=== PATIENT | female | born 1945 | race Caucasian/White ===

== ENCOUNTER 2022-05-28 09:32 | Outpatient (CLI) | payer MEDICARE, OTHER, SELFPAY ==
[2022-05-28 10:07] LABS: Albumin* 4.8 g/dL (3.3-5.0); Chloride* 102 mmol/L (96-114)
[2022-05-28 10:08] LABS: Potassium* 4.5 mmol/L (3.6-5.1); Sodium* 139 mmol/L (135-149)
[2022-05-28 10:10] LABS: Aspartate Amino Transferase* 31 U/L (12-35); Bilirubin Total* 0.6 mg/dL (0.1-1.5); Blood Urea Nitrogen* 12 mg/dL (7-30); Carbon Dioxide* 29 mmol/L (20-32); Cholesterol* 188 mg/dL (90-199); Creatinine* 0.6 mg/dL (0.5-1.5); Estimated Glomerular Filt Rate 92 ml/min; Total Protein* 7.6 g/dL (6.0-8.3)
[2022-05-28 10:11] LABS: Alanine Aminotransferase* 10 U/L (4-35); Alkaline Phosphatase* 65 U/L (40-150); Calcium* 10.3 mg/dL (8.4-10.6); Glucose* 102 mg/dL (60-115); HDL Cholesterol* 59 mg/dL (>=50); LDL Cholesterol Calculated 93 mg/dL (<100); Triglycerides* 179 mg/dL (40-149)
== END 2022-05-28 09:33 | disposition home or self-care (01) ==
PROVIDERS: PCP Family Medicine; Visit Provider Family Medicine
DX: Z00.00 Encounter for general adult medical examination without abnormal findings (principal); I10 Essential (primary) hypertension; E78.5 Hyperlipidemia, unspecified
CPT/HCPCS: 80053; 80061

== ENCOUNTER 2023-06-01 07:41 | Outpatient (CLI) | payer MEDICARE, OTHER, SELFPAY | END 2023-06-01 07:42 | disposition home or self-care (01) | LOC: NFLDREF 12:49 | PROVIDERS: PCP Family Medicine; Referring Provider Family Medicine; Visit Provider Family Medicine | DX: I10 Essential (primary) hypertension (principal); M85.80 Other specified disorders of bone density and structure, unspecified site; E78.5 Hyperlipidemia, unspecified | CPT/HCPCS: 80053; 80061; 82306 ==

== ENCOUNTER 2023-06-17 13:18 | Outpatient (REF) | payer OTHER, SELFPAY | END 2023-06-17 13:19 | disposition home or self-care (01) | LOC: NFLDREF 13:18 | PROVIDERS: PCP Family Medicine; Referring Provider Family Medicine; Visit Provider Family Medicine | DX: I10 Essential (primary) hypertension (principal) | CPT/HCPCS: 80048 ==

== ENCOUNTER 2024-03-12 12:31 | Outpatient (CLI) | payer MEDICARE, OTHER, SELFPAY | END 2024-03-12 12:32 | disposition home or self-care (01) | LOC: NFLDREF 03-14 06:28 | PROVIDERS: PCP Family Medicine; Referring Provider Family Medicine; Visit Provider Nurse Practitioner Family | DX: N30.01 Acute cystitis with hematuria (principal) | CPT/HCPCS: 87086; 87186 ==

== ENCOUNTER 2024-06-04 07:49 | Outpatient (CLI) | payer MEDICARE, OTHER, SELFPAY ==
--- OUTSIDE RECORDS SUMMARY | 2024-06-04 08:57 | XMS_ITS | Clinical Summary ---
Author Organization [email or web address] [facility] Address [place], [place] [address] Care Team Providers Care Patrol Lady Name Role Phone Paige Adamson MD Primary Care Provider [phone] Allergies Active Allergy Reactions Criticality Noted Date Comments Sulfa (Sulfonamide Antibiotics) Rash 11/21 Medications Medication Sig Dispensed Refills Start Date End Date Status atenolol (TENORMIN) 25 mg tablet Take 1 tablet by mouth once daily. 0 12/16/2011 Active simvastatin (ZOCOR) 20 mg tablet Take 1 tablet by mouth at bedtime. 0 12/16/2011 Active omeprazole (PRILOSEC) 20 mg capsule Take 1 capsule by mouth once daily before a meal. 0 12/16/2011 Active anastrozole (ARIMIDEX) 1 mg tablet Take 1 tablet by mouth once daily. 0 12/16/2011 Active aspirin enteric coated 81 mg tablet Take 1 tablet by mouth once daily with a meal. 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/16/2011 Lumbar facet arthropathy 12/16/2011 Left S1 radiculopathy 12/16/2011 Social History Tobacco Use Types Packs/Day Years Used Date Smoking Tobacco: Never Alcohol Use Standard Drinks/Week Comments Not Asked 0 (1 standard drink = 0.6 oz pur e alcohol) Sex and Gender Information Value Date Recorded Sex Assigned at Not on file Gender Identity Not on file Sexual Orientation Not on file Obstetrics History Last Filed Vital Signs Vital Sign Reading Time Taken Comments Blood Pressure 161/87 12/16/2011 11:13 AM CDT Pulse 66 12/16/2011 11:13 AM CDT Temperature 36.6 ??C (97.9 ??F) 12/16/2011 11:13 AM C DT Respiratory Rate - - Oxygen Saturation - - Inhaled Oxygen Concentration - - Weight 62.6 kg (138 lb) 12/16/2011 11:13 AM CDT Height - - Body Mass Index - - Plan of Treatment Health Maintenance Due Date Last Done Comments Tdap 02/28/1955 Depression screening for age 12+ 1956 BMI (ht and wt on same day) for age 18+ 02/28/1962 Tetanus booster 1964 Zoster (shingles) series for age 50+ (1 of 2) 02/28/19 94 DEXA/DXA scan for age 65+ 02/28/2009 Pneumococcal series for age 65+ (1 of 1 - PCV) 009 RSV vaccine for adults or pr egnancy (1 - 1-dose 75+ series) 02/28/2019 COVID-19 vaccine series ( - 2023- season) 4 Influenza for age 65+ 04/22/2024 Care Teams Patrol Lady Relationship Specialty Start Date End Date Paige Adamson MD PCP - General Internal Medicine 09/02/11
== END 2024-06-04 07:50 | disposition home or self-care (01) ==
LOC: NFLDREF 08:55
PROVIDERS: PCP Family Medicine; Referring Provider Family Medicine; Visit Provider Family Medicine
DX: Z00.00 Encounter for general adult medical examination without abnormal findings (principal); E78.5 Hyperlipidemia, unspecified; I10 Essential (primary) hypertension; M85.89 Other specified disorders of bone density and structure, multiple sites
CPT/HCPCS: 80053; 80061; 82306

== ENCOUNTER 2024-10-18 11:17 | Outpatient (CLI) | payer MEDICARE, OTHER, SELFPAY | END 2024-10-18 11:18 | disposition home or self-care (01) | PROVIDERS: PCP Family Medicine; Visit Provider Family Medicine | DX: I10 Essential (primary) hypertension (principal); E78.5 Hyperlipidemia, unspecified; G45.9 Transient cerebral ischemic attack, unspecified | CPT/HCPCS: 80053; 80061; 84443 ==

== ENCOUNTER 2024-10-29 12:59 | Outpatient (CLI) | payer MEDICARE, OTHER, SELFPAY | END 2024-10-29 13:00 | disposition home or self-care (01) | LOC: RAD 12:59 | PROVIDERS: PCP Family Medicine; Visit Provider Family Medicine | DX: G45.9 Transient cerebral ischemic attack, unspecified (principal); I67.1 Cerebral aneurysm, nonruptured | CPT/HCPCS: 93306; 96374 ==

== ENCOUNTER 2024-10-31 13:57 | Outpatient (CLI) | payer MEDICARE, OTHER, SELFPAY ==
--- NOTE | 2024-10-31 13:45 | CRLHL7_ITS ---
For Patients: As a result of the Century Cures Act, medical imaging exams and procedure reports are released immediately into your electronic medical record. You may view this report before your referring provider. If you have questions, please contact your health care provider. Indication: Transient cerebral ischemia. Technique: MRI brain: Multiplanar multisequence MR imaging prior to and following intravenous administration of 20 mL Dotarem. MRA head: [id number] imaging. MRA neck: Jaan-qz-vnllmo and postcontrast images following intravenous 20 mL Dotarem. Comparison: None. Findings: MRI brain: Mild diffuse cerebral volume loss. No mass effect or midline shift. Patchy FLAIR hyperintensities in the supratentorial white matter, typical for moderate chronic microvascular ischemic changes. No intracranial hemorrhage or pathologic extra-axial fluid collection. No diffusion restriction to suggest acute infarction. No pathologic intracranial enhancement. The major arterial flow voids of the skull base are preserved. Thinning of the ocular lenses. Paranasal sinuses are well aerated. Trace mastoid fluid bilaterally. MRA head: The internal carotid, middle cerebral, and anterior cerebral arteries are widely patent. The vertebral, basilar, and posterior cerebral arteries are widely patent. 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 MRA neck: The innominate and subclavian arteries are widely patent. The common carotid arteries are widely patent. The internal carotid arteries are widely patent. The left vertebral artery is dominant. The vertebral artery origins are suboptimally assessed. The vertebral arteries are otherwise widely patent. Impression: MRI brain: 1. No acute intracranial abnormality. 2. Moderate chronic microvascular ischemic changes and mild diffuse cerebral volume loss. MRA head/neck: 1. Widely patent intracranial vasculature. 2. 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 Recommend consultation with the neuro interventional radiology service at [facility] for further management. This can be arranged by calling [phone]. 3. The vertebral artery origins are suboptimally assessed. Otherwise, widely patent cervical vasculature. Dictated by Phillip Marie MD @ 11/01/2024 9:00:34 AM (Electronically Signed)
--- NOTE | 2024-10-31 14:30 | CRLHL7_ITS ---
For Patients: As a result of the Century Cures Act, medical imaging exams and procedure reports are released immediately into your electronic medical record. You may view this report before your referring provider. If you have questions, please contact your health care provider. Indication: Transient cerebral ischemia. Technique: MRI brain: Multiplanar multisequence MR imaging prior to and following intravenous administration of 20 mL Dotarem. MRA head: Txno-jd-umuiit imaging. MRA neck: Jbja-zc-lmmhvz and postcontrast images following intravenous 20 mL Dotarem. Comparison: None. Findings: MRI brain: Mild diffuse cerebral volume loss. No mass effect or midline shift. Patchy FLAIR hyperintensities in the supratentorial white matter, typical for moderate chronic microvascular ischemic changes. No intracranial hemorrhage or pathologic extra-axial fluid collection. No diffusion restriction to suggest acute infarction. No pathologic intracranial enhancement. The major arterial flow voids of the skull base are preserved. Thinning of the ocular lenses. Paranasal sinuses are well aerated. Trace mastoid fluid bilaterally. MRA head: The internal carotid, middle cerebral, and anterior cerebral arteries are widely patent. The vertebral, basilar, and posterior cerebral arteries are widely patent. 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 MRA neck: The innominate and subclavian arteries are widely patent. The common carotid arteries are widely patent. The internal carotid arteries are widely patent. The left vertebral artery is dominant. The vertebral artery origins are suboptimally assessed. The vertebral arteries are otherwise widely patent. Impression: MRI brain: 1. No acute intracranial abnormality. 2. Moderate chronic microvascular ischemic changes and mild diffuse cerebral volume loss. MRA head/neck: 1. Widely patent intracranial vasculature. 2. 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 Recommend consultation with the neuro interventional radiology service at [facility] for further management. This can be arranged by calling [phone]. 3. The vertebral artery origins are suboptimally assessed. Otherwise, widely patent cervical vasculature. Dictated by Phillip Marie MD @ 11/01/2024 8:59:44 AM (Electronically Signed)
--- NOTE | 2024-10-31 14:30 | CRLHL7_ITS ---
For Patients: As a result of the Century Cures Act, medical imaging exams and procedure reports are released immediately into your electronic medical record. You may view this report before your referring provider. If you have questions, please contact your health care provider. Indication: Transient cerebral ischemia. Technique: MRI brain: Multiplanar multisequence MR imaging prior to and following intravenous administration of 20 mL Dotarem. MRA head: Itaq-yj-abkmdc imaging. MRA neck: Ytap-hl-pvtxym and postcontrast images following intravenous 20 mL Dotarem. Comparison: None. Findings: MRI brain: Mild diffuse cerebral volume loss. No mass effect or midline shift. Patchy FLAIR hyperintensities in the supratentorial white matter, typical for moderate chronic microvascular ischemic changes. No intracranial hemorrhage or pathologic extra-axial fluid collection. No diffusion restriction to suggest acute infarction. No pathologic intracranial enhancement. The major arterial flow voids of the skull base are preserved. Thinning of the ocular lenses. Paranasal sinuses are well aerated. Trace mastoid fluid bilaterally. MRA head: The internal carotid, middle cerebral, and anterior cerebral arteries are widely patent. The vertebral, basilar, and posterior cerebral arteries are widely patent. 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 MRA neck: The innominate and subclavian arteries are widely patent. The common carotid arteries are widely patent. The internal carotid arteries are widely patent. The left vertebral artery is dominant. The vertebral artery origins are suboptimally assessed. The vertebral arteries are otherwise widely patent. Impression: MRI brain: 1. No acute intracranial abnormality. 2. Moderate chronic microvascular ischemic changes and mild diffuse cerebral volume loss. MRA head/neck: 1. Widely patent intracranial vasculature. 2. 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 Recommend consultation with the neuro interventional radiology service at [facility] for further management. This can be arranged by calling [phone]. 3. The vertebral artery origins are suboptimally assessed. Otherwise, widely patent cervical vasculature. Dictated by Phillip Marie MD @ 11/01/2024 9:00:15 AM (Electronically Signed)
== END 2024-10-31 13:58 | disposition home or self-care (01) ==
LOC: MRI 13:58
PROVIDERS: PCP Family Medicine; Visit Provider Family Medicine
DX: G45.9 Transient cerebral ischemic attack, unspecified (principal); I67.1 Cerebral aneurysm, nonruptured
CPT/HCPCS: 70544; 70549; 70553; A9575

== ENCOUNTER 2024-11-15 10:52 | Outpatient (CLI) | payer MEDICARE, OTHER, SELFPAY ==
--- NOTE | 2024-11-15 11:00 | CRLHL7_ITS ---
For Patients: As a result of the Century Cures Act, medical imaging exams and procedure reports are released immediately into your electronic medical record. You may view this report before your referring provider. If you have questions, please contact your health care provider. CLINICAL HISTORY: Patient with cerebral aneurysm. TECHNIQUE: Standard helical CT image acquisition through the head following the administration of intravenous contrast was performed. 3D and MIP reconstructions were performed at a separate workstation and permanently archived. COMPARISON: MRA head dated 10/31/2024. FINDINGS: There is a 5.5mm right MCA bifurcation aneurysm. No intracranial proximal large vessel occlusion or flow-limiting luminal stenosis. No findings to suggest an arterial-venous shunting lesion. 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 Please note that all CT scans at this facility use dose modulation, iterative reconstruction, and/or weight-based dosing when appropriate to reduce radiation dose to as low as reasonably achievable. Dictated by Cameron Howard MD @ 11/15/2024 1:58:29 PM (Electronically Signed)
== END 2024-11-15 10:53 | disposition home or self-care (01) ==
LOC: CT 10:54
PROVIDERS: PCP Family Medicine; Visit Provider Neurological Surgery
DX: I67.1 Cerebral aneurysm, nonruptured (principal)
CPT/HCPCS: 70496; Q9967

== ENCOUNTER 2024-11-22 08:50 | Outpatient (CLI) | payer MEDICARE, OTHER, SELFPAY | END 2024-11-22 08:51 | disposition home or self-care (01) | LOC: NFLDREF 11-25 08:37 | PROVIDERS: PCP Family Medicine; Referring Provider Family Medicine; Visit Provider Family Medicine | DX: I10 Essential (primary) hypertension (principal) | CPT/HCPCS: 80048 ==

== ENCOUNTER 2025-03-21 10:05 | Outpatient (CLI) | payer MEDICARE, OTHER, SELFPAY | END 2025-03-21 10:06 | disposition home or self-care (01) | PROVIDERS: PCP Family Medicine; Visit Provider Physician Assistant | DX: R31.9 Hematuria, unspecified (principal) | CPT/HCPCS: 87086 ==

== ENCOUNTER 2025-03-22 11:10 | Outpatient (CLI) | payer MEDICARE, OTHER, SELFPAY | END 2025-03-22 11:11 | disposition home or self-care (01) | LOC: NFLDREF 11:13 | PROVIDERS: PCP Family Medicine; Visit Provider Family Medicine | DX: R31.9 Hematuria, unspecified (principal); N39.0 Urinary tract infection, site not specified | CPT/HCPCS: 87086 ==

== ENCOUNTER 2025-04-15 10:35 | Outpatient (CLI) | payer MEDICARE, OTHER, SELFPAY ==
--- NOTE | 2025-04-15 11:00 | CRLHL7_ITS ---
For Patients: As a result of the 21st Century Cures Act, medical imaging exams and procedure reports are released immediately into your electronic medical record. You may view this report before your referring provider. If you have questions, please contact your health care provider. INDICATION: GROSS HEMATURIA, HISTORY BREAST CANCER TECHNIQUE: CT abdomen and pelvis urogram without and with 100 cc Omnipaque 350 IV contrast. Contrast images were obtained in the nephrographic and delayed phases. COMPARISON: None. FINDINGS: KIDNEYS: The unenhanced images demonstrate hyperdense material within the renal collecting systems bilaterally. The kidneys are normal in caliber and demonstrate normal uptake and excretion of IV contrast. Small bilateral renal cysts are present bilaterally measuring up to 7 millimeters. Incidental 3 millimeter angiomyolipoma left kidney. The renal collecting systems and ureters are symmetrical, normal in caliber, and without evidence of mass or filling defect. URINARY BLADDER: The urinary bladder is normal in caliber and without evidence of mass, wall thickening, or inflammation. OTHER: Scarring in both lung bases noted. No pleural effusion. No intrahepatic mass. Gallbladder distended. No biliary obstruction or calcified stones. Normal spleen. Atherosclerotic changes. No adrenal nodule. No pancreatic mass. Circumscribed area within the central uterus measures 3.1 cm. Ovaries normal. Extensive sigmoid diverticulosis. No diverticulitis. No bowel obstruction or free air. No free fluid or abscess. No adenopathy. Grade 1 degenerative spondylolisthesis of L4 on L5. No vertebral body compression fracture. Osteoporosis. Nondisplaced insufficiency fractures of the sacrum noted. Incidental bone island within the right superior acetabulum. IMPRESSION: 1. Hyperdense material within the renal collecting systems bilaterally which could represent stone material in the absence of recent contrast-enhanced exam. 2. Small bilateral simple renal cysts and small incidental left renal angiomyolipoma. 3. Concern for a central endometrial or uterine mass measuring 3.1 cm. Pelvic ultrasound recommended. Please note that all CT scans at this facility use dose modulation, iterative reconstruction, and/or weight-based dosing when appropriate to reduce radiation dose to as low as reasonably achievable. Dictated by Allen Jiang MD @ 04/15/2025 3:40:52 PM (Electronically Signed)
[2025-04-15 11:18] LABS: Creatinine* 0.6 mg/dL (0.5-1.5); Estimated Glomerular Filt Rate 90 ml/min
== END 2025-04-15 10:36 | disposition home or self-care (01) ==
LOC: CT 10:37
PROVIDERS: PCP Family Medicine; Visit Provider Family Medicine
DX: R31.0 Gross hematuria (principal); N28.1 Cyst of kidney, acquired; R19.00 Intra-abdominal and pelvic swelling, mass and lump, unspecified site; Z85.3 Personal history of malignant neoplasm of breast
CPT/HCPCS: 36415; 74178; 82565; Q9967

== ENCOUNTER 2025-04-30 10:35 | Outpatient (CLI) | payer MEDICARE, OTHER, SELFPAY ==
--- NOTE | 2025-04-30 10:45 | CRLHL7_ITS ---
For Patients: As a result of the Century Cures Act, medical imaging exams and procedure reports are released immediately into your electronic medical record. You may view this report before your referring provider. If you have questions, please contact your health care provider. INDICATION: endometrial or uterine mass COMPARISON: CT urogram 04/15/2025 TECHNIQUE: 2D carver-scale and color Doppler images were acquired of the pelvis using a transabdominal and transvaginal approach. Transvaginal imaging performed to better visualize the endometrial stripe and ovaries. FINDINGS: Sonographic images demonstrate a normal size and smooth outer contour of the uterus. Uterus measures 7.0 cm in length by 4.1 cm in AP diameter by 5.3 cm in transverse dimension. Heterogeneous solid leiomyomas present within the mid uterus which measures 4.0 x 3.5 x 3.9 cm, corresponding with the CT. The endometrium is at least partially obscured by the midline fibroid and the visualized endometrium measures 2.9 millimeters. The right ovary measures 2.0 x 1.3 x 1.5 cm in size and the left ovary is obscured by bowel gas. The right ovary demonstrates normal arterial and venous blood flow on color Doppler analysis. There are no suspicious fluid collections within the cul-de-sac. IMPRESSION: Central midline uterine fibroid measures 4 cm which obscures most of the endometrium. Dictated by Allen Jiang MD @ 04/30/2025 12:09:48 PM (Electronically Signed)
== END 2025-04-30 10:36 | disposition home or self-care (01) ==
LOC: US 10:36
PROVIDERS: PCP Family Medicine; Visit Provider Family Medicine
DX: R93.5 Abnormal findings on diagnostic imaging of other abdominal regions, including retroperitoneum (principal); D25.9 Leiomyoma of uterus, unspecified
CPT/HCPCS: 76830; 76856

== ENCOUNTER 2025-06-10 07:30 | Outpatient (CLI) | payer MEDICARE, OTHER, SELFPAY | END 2025-06-10 07:31 | disposition home or self-care (01) | LOC: NFLDREF 06-12 09:07 | PROVIDERS: PCP Family Medicine; Referring Provider Family Medicine; Visit Provider Family Medicine | DX: M85.80 Other specified disorders of bone density and structure, unspecified site (principal); I10 Essential (primary) hypertension; E78.5 Hyperlipidemia, unspecified | CPT/HCPCS: 80053; 80061; 82306 ==

== ENCOUNTER 2025-08-14 09:25 | Outpatient (CLI) | payer MEDICARE, OTHER, SELFPAY | END 2025-08-14 09:26 | disposition home or self-care (01) | LOC: INJ CL 09:25 | PROVIDERS: PCP Family Medicine; Visit Provider Nurse Anesthetist, Certified Registered | DX: M54.16 Radiculopathy, lumbar region (principal) | CPT/HCPCS: 64483; J0665; Q9966 ==